=== PATIENT | female | born 1930 | race Caucasian/White ===

== ENCOUNTER 2017-09-24 10:27 | Emergency (ER) | payer OTHER ==
[~2017-09-24] VITALS: Ht 142.2 cm; Wt 52.6 kg
[~2017-09-24 10:27] MED LIST: ACTONEL35 MG PO; LEVOTHYROXIN0.088 M1 PO; LOPRESSOR 25MG25 MG PO; LOSARTAN POTASS50 MG PO; NITROFURANTOIN100 M4 PO; VITAMIN D3 202000 IU PO
--- NOTE | 2017-09-24 11:52 | RADIOLOGY REPORT ---
EXAMINATION: XR CHEST CLINICAL INFORMATION: Cough and shortness of breath COMPARISON: December 28, 2013 TECHNIQUE: 2 views of the chest were obtained. FINDINGS: There is no evidence of acute parenchymal disease, pneumothorax, or pleural effusion. The cardiopericardial silhouette is mildly enlarged. No evidence of pulmonary edema. There is osteopenia visualized bones with mild scoliosis thoracic spine convex right. IMPRESSION: Cardiomegaly without pulmonary edema. No acute parenchymal disease.
--- NOTE | 2017-09-24 12:00 | ED DYSPNEA/ASTHMA COMPLAINT ---
History of Present Illness General Chief Complaint: General Adult Stated Complaint: BIBA COLD SYMPTOMS Source: patient Exam Limitations: no limitations Vital Signs & Intake/Output Vital Signs & Intake/Output ED Intake and Output 09/25 0000 09/24 1200 Intake Total Output Total Balance Patient 116 lb Weight Allergies Coded Allergies: NO KNOWN ALLERGIES (01/09/14) Reconcile Medications Azithromycin (Zithromax) 250 MG TABLET 1 DP PO AD bronchitis 2 the first day followed by 1 for days 2-5 Chlorpheniramine/Dextromethorp (Robitussin Long-Acting Liq) 1 MG-7.5 MG/5 ML LIQUID 5 ML PO BID PRN cough Cholecalciferol (Vitamin D) 2,000 UNIT TABLET 2,000 IU PO DAILY VITAMIN ( Reported) Levothyroxine Sodium 0.088 MG TAB 0.088 MG PO DAILY HYPOTHYROID (Reported) Losartan Potassium 50 MG TABLET 1 TAB PO DAILY CARDIAC (Reported) Metoprolol Tartrate (Lopressor) 25 MG TABLET 1 TAB PO DAILY HTN (Reported) NITROFURANTOIN MONOHYD/M-CRYST (Nitrofurantoin [place]-Mcr 100 MG) 100 MG CAPSULE 100 MG PO WEEKLY UTI (Reported) TAKE ON THURSDAYS Risedronate Sodium (Actonel) 35 MG TABLET 1 TAB PO QW BONES (Reported) Triage Note: PT TO ER VIA AMBULANCE FOR COMPLAINTS OF COUGH /FEVERS AND EXERTIONAL SOB AND RUNNY NOSE X 2 DAYS. PT AFEBRILE AT THIS TIME AND STATED THAT SHE CALLED [facility] THIS AM AND [facility] CALLED THE AMBULANCE DUE TO PT DOES NOT DRIVE. Triage Nurses Notes Reviewed? yes Onset: Gradual Duration: day(s): Timing: recent history Severity: moderate HPI: 86yo female with hx of CHF, HTN BIBA to ED complaining of cough, rhinorrhea, fevers 2 days. Patient states that symptoms have been gradually worsening. Patient states fever at home was 101F. the patient states she only came by ambulance today because she cannot drive and had no other ride. The patient has not taken any new medications for symptomatic relief. The patient denies sore throat, ear pain, dyspnea, chest pain, abdominal pain, nausea, vomiting, diarrhea, sick contact. (Ning BURK,Virgie Marino) Past History Travel History Traveled to [place] past 21 day No Medical History Any Pertinent Medical History? see below for history Cardiovascular: CHF, hypertension Respiratory: NONE Gastrointestinal: NONE Hepatic: NONE Renal: NONE Musculoskeletal: NONE Psychiatric: NONE Endocrine: hypothyroidism Blood Disorders: NONE Cancer(s): NONE SKI INSTRUCTOR/Reproductive: NONE Influenza Vaccine: 03/29/13 Surgical History Surgical History: non-contributory Psychosocial History What is your primary language [place]ian Tobacco Use: Never used ETOH Use: denies use Illicit Drug Use: denies illicit drug use Family History Hx Contributory? No (Virgie Lynne) Review of Systems Review of Systems Constitutional: Reports: see HPI. EENTM: Reports: see HPI. Respiratory: Reports: see HPI. Cardiovascular: Reports: no symptoms. GI: Reports: no symptoms. Genitourinary: Reports: no symptoms. Musculoskeletal: Reports: no symptoms. Skin: Reports: no symptoms. Neurological/Psychological: Reports: no symptoms. Hematologic/Endocrine: Reports: no symptoms. Immunologic/Allergic: Reports: no symptoms. All Other Systems: Reviewed and Negative (Virgie Lynne) Physical Exam Physical Exam General Appearance: well developed/nourished, no apparent distress, alert, awake Head: atraumatic, normal appearance Eyes: Bilateral: normal appearance. Ears, Nose, Throat: normal pharynx, normal ENT inspection, hearing grossly normal Neck: normal inspection, supple, full range of motion Respiratory: normal breath sounds, no respiratory distress, lungs clear Cardiovascular: regular rate/rhythm Gastrointestinal: normal bowel sounds, soft, non-tender, no organomegaly Extremities: normal inspection, normal range of motion Neurologic/Psych: awake, alert, oriented x 3 Skin: intact, normal color, warm/dry Core Measures ACS in differential dx? Yes CVA/TIA Diagnosis No Sepsis Present: No Sepsis Focused Exam Completed? No (Virgie Lynne) Progress Differential Diagnosis: asthma, AMI, bronchitis, costochondritis, musculoskeletal pain, pneumonia Plan of Care: Orders Procedure Date/time Status RAPID VIRAL INFLUENZA A 09/24 1159 Complete TROPONIN LEVEL 09/24 1159 Complete COMPREHENSIVE METABOLIC PANEL 09/24 1159 Complete CBC WITHOUT DIFFERENTIAL 09/24 1159 Complete EKG 09/24 1159 Active Laboratory Tests 09/24/17 1222: Anion Gap 9, Estimated GFR 29 L, BUN/Creatinine Ratio 20.0, Glucose 90, Calcium 9.1, Total Bilirubin 1.3, AST 19, ALT 13, Alkaline Phosphatase 52, Troponin I < 0.01, Total Protein 5.7 L, Albumin 3.2 L, Globulin 2.5, Albumin/Globulin Ratio 1.3, CBC w Diff NO MAN DIFF REQ, RBC 3.77 L, MCV 90.9, MCH 29.0, MCHC 31.9 L, RDW 14.1, MPV 8.9, Gran % 72.4, Lymphocytes % 17.3 L, Monocytes % 9.3, Eosinophils % 0.6, Basophils % 0.4, Absolute Granulocytes 6.8 H, Absolute Lymphocytes 1.6, Absolute Monocytes 0.9 H, Absolute Eosinophils 0.1, Absolute Basophils 0 Microbiology 09/24 1222 NASOPHARYN: Influenza Virus A & B Rapid Smear - COMP Patient's EKG without acute changes, blood work is within normal limits. Rapid flu swab is negative. The patient's chest x-ray without signs of acute pneumonia. Patient likely has acute bronchitis. Given her fever at home and her elderly age with risk factors such as CHF will treat with antibiotics to cover for bacterial infection. Patient also given prescription for cough suppressant to help with her symptoms. She was instructed to follow up with her primary care doctor. The patient was given strict return precautions for chest pain or shortness of breath. Patient ambulatory here in the emergency Department without difficulty. Her vital signs are stable, she is nontoxic- appearing. The plan of care. The patient was discussed with Dr. Lynne who agrees with the plan of care.. Diagnostic Imaging: Viewed by Me: Radiology Read. Discussed w/RAD: Radiology Read. CXR Impression: PATIENT: ADRIANA HAWK PRESENT AGE: 86 PATIENT ACCOUNT NO: [id number] : 32 LOCATION: [facility] ORDERING PHYSICIAN: Mikel Mccoy DO SERVICE DATE: 09/24/171113 EXAM TYPE: RAD - XRY-CHEST XRAY, TWO VIEWS EXAMINATION: XR CHEST CLINICAL INFORMATION: Cough and shortness of breath COMPARISON: December 28, 2013 TECHNIQUE: 2 views of the chest were obtained. FINDINGS: There is no evidence of acute parenchymal disease, pneumothorax, or pleural effusion. The cardiopericardial silhouette is mildly enlarged. No evidence of pulmonary edema. There is osteopenia visualized bones with mild scoliosis thoracic spine convex right. IMPRESSION: Cardiomegaly without pulmonary edema. No acute parenchymal disease. DICTATED BY: Bk Olson MD DATE/TIME DICTATED:09/24/171145 AUDIO/VISUAL MANAGER:JUSTIN DATE/TIME TRANSCRIBED:09/24/171145 CONFIDENTIAL, DO NOT COPY WITHOUT APPROPRIATE AUTHORIZATION. <Electronically signed in Other Vendor System> SIGNED BY: Bk Olson MD 09/24/17 1152 Initial ED EKG: sinus rhythm @56bpm, nonspecific ST changes Prior EKG: unchanged (11/14/06) (Virgie Lynne) Departure Departure Disposition: HOME OR SELF CARE Condition: Stable Clinical Impression Primary Impression: Cough Secondary Impressions: Nasal congestion Referrals: Barrera Hutchins MD (PCP/Family) Additional Instructions: Begin antibiotics today, take full course of antibiotics. Use Robitussin syrup as prescribed as needed for cough. Return with any worsening symptoms or concerns such as chest pain, difficulty breathing, high fevers, vomiting. Use Tylenol 650mg four times a day for fever. Please note that there might be incidental findings in your evaluation that are unrelated to the current emergency department visit. Please notify your primary care doctor about this emergency department visit in order to obtain and review all of the testing performed so that these incidental findings can be monitored as needed. If you had an x-ray performed, please understand that some fractures may not be seen on the initial set of x-rays. If your symptoms persist you might need a repeat set of x-rays to check for such a fracture. If you had a laceration evaluated, please understand that foreign bodies such as glass or wood may not be visible to the naked eye or on plain x-rays. If the wound becomes red, swollen, increasingly more painful or if there is any drainage from the wound, please have it reevaluated by a physician for the possibility of a retained foreign body. If you're unable to follow up as outlined in the discharge instructions please return to the emergency department. Thank you for choosing the [facility] Emergency Department for your care. It was a pleasure to serve you today. Departure Forms: Customer Survey General Discharge Information Prescriptions: Current Visit Scripts Azithromycin (Zithromax) 1 DP PO AD #6 TAB 2 the first day followed by 1 for days 2-5 Chlorpheniramine/Dextromethorp (Robitussin Long-Acting Liq) 5 ML PO BID PRN cough #120 ML (Ning PA,Virgie Jamila) PA/TENSILE TESTER Co-Sign Statement Statement: ED Attending supervision documentation- x I saw and evaluated the patient. I have also reviewed all the pertinent lab results and diagnostic results. I agree with the findings and the plan of care as documented in the PA's/TENSILE TESTER's documentation. [] I have reviewed the ED Record and agree with the PA's/TENSILE TESTER's documentation. [] Additions or exceptions (if any) to the PAs/TENSILE TESTER's note and plan are summarized below: [] (Guera NELSON,Trevon) Critical Care Note Critical Care Note Critical Care Time: non-applicable (Ning BURK,Virgie Marino)
[2017-09-24 12:40] LABS: ABSOLUTE BASOPHIL COUNT 0 /CUMM (0.0-0.2); ABSOLUTE EOSINOPHIL COUNT 0.1 /CUMM (0.0-0.7); ABSOLUTE GRANULOCYTE CT 6.8 /CUMM (1.4-6.5); ABSOLUTE LYMPH COUNT 1.6 /CUMM (1.2-3.4); ABSOLUTE MONOCYTE COUNT 0.9 /CUMM (0.10-0.60); BASOPHIL % 0.4 % (0.0-2.0); EOSINOPHIL % 0.6 % (0-5); GRANULOCYTE % 72.4 % (42.2-75.2); HEMATOCRIT 34.3 % (37-47); MEAN CORPUSCULAR HGB CONC 31.9 G/DL (33.0-37.0); MEAN CORPUSCULAR VOLUME 90.9 FL (81.0-99.0); MEAN PLATELET VOLUME 8.9 FL (7.4-10.4); PLATELET COUNT 231 /CUMM (130-400); RBC DISTRIBUTION WIDTH 14.1 % (11.5-14.5); RED BLOOD CELL CT 3.77 /CUMM (4.20-5.40); WHITE BLOOD CELL COUNT 9.4 /CUMM (4.8-10.8)
[2017-09-24 13:09] VITALS: BP 168/70
[2017-09-24] MEDS ORDERED: ROBITUSSIN LON118 ML PO (13:23)
[2017-09-24] MEDS ORDERED: ZITHROMAX250 M2 PO (13:23)
== END 2017-09-24 13:34 ==
LOC: ERH 10:27
PROVIDERS: Physician Assistant
DX: R05 Cough (principal); R09.81 Nasal congestion; R50.9 Fever, unspecified; I10 Essential (primary) hypertension; I50.9 Heart failure, unspecified
CPT/HCPCS: 71046; 87804; 87804-59; 93005; 93010